=== PATIENT | male | born 1990 | race Caucasian/White ===

== ENCOUNTER 2022-11-18 12:48 | Emergency (ER) | payer SELFPAY ==
--- NOTE | ~2022-11-18 | XR_ITS ---
EXAMINATION: XR knee RT 4V, XR knee LT 4V CLINICAL INFORMATION: Reason for Exam Knee pain. COMPARISON: None available at the time of this dictation. TECHNIQUE: Frontal lateral and obliques 4 view each side. FINDINGS: BONES: No fracture or dislocation is present. JOINTS: Joint spaces are preserved. Patella properly positioned. No joint effusions. Articular surfaces are smooth. SOFT TISSUE: Normal XR/XR knee RT 4V IMPRESSION: No significant osseous changes to explain patient's pain symptoms.
--- NOTE | ~2022-11-18 | XR_ITS ---
EXAMINATION: XR knee RT 4V, XR knee LT 4V CLINICAL INFORMATION: Reason for Exam Knee pain. COMPARISON: None available at the time of this dictation. TECHNIQUE: Frontal lateral and obliques 4 view each side. FINDINGS: BONES: No fracture or dislocation is present. JOINTS: Joint spaces are preserved. Patella properly positioned. No joint effusions. Articular surfaces are smooth. SOFT TISSUE: Normal XR/XR knee LT 4V IMPRESSION: No significant osseous changes to explain patient's pain symptoms.
[2022-11-18 13:04] VITALS: BP 108/70; PULSE 92; RESP 18; TEMP 36.7; O2SAT 94; BMI 34.9
--- NOTE | 2022-11-18 13:07 | ED_ITS ---
HPI - General Adult General Chief complaint: Extremity Injury, Lower Stated complaint: Bilateral knee pain, lump behind knee Time Seen by Provider: 11/18/22 14:17 Source: patient Mode of arrival: ambulatory Limitations: no limitations History of Present Illness HPI narrative: Patient is a 32-year-old male presenting emergency department with complaint of bilateral knee pain for the past several years, left worse than right. Patient reports pain increases after sitting with legs bent for extended period of time and then straightening his legs. He denies using any [id number] medications for his symptoms. He has applied ice and is currently wearing a compression sleeve to his left knee. He reports an injury to his left knee in 7th grade which he was never evaluated for. He denies any recent falls or other trauma. He denies any numbness or tingling to his legs. He denies any difficulty with ambulation. MD complaint: Bilateral knee pain Onset (ago): year(s) Location: lower extremity Radiation: non-radiation Severity: moderate Severity scale (1-10): 6 Quality: aching Pain Consistency: intermittent Relieving factors: rest Exacerbating factors: movement Associated symptoms: denies other symptoms Treatments prior to arrival: cold therapy Related Data Allergies Allergy/AdvReac Type Severity Reaction Status Date / Time No Known Allergies Allergy Verified 11/18/22 13:04 Review of Systems Review of Systems: As per HPI. Yes all other systems are reviewed and are negative Constitutional: Constitutional: Reports as per HPI [facility] Social History Social History Advance Directives: No Advance Directives Information Provided: Yes Physical Exam ED Vital Signs: Vital Signs - 24 hr 11/18/22 13:04 11/18/22 15:27 Temperature 98.1 F 97.8 F Pulse Rate 92 71 Respiratory Rate 18 19 Blood Pressure 108/70 113/66 Pulse Oximetry 94 98 Oxygen Delivery Method Room Air Room Air BMI result Body Mass Index 34.9 Vital signs have been reviewed and appear to be correct. Blood pressure normal. Heart rate normal. Respiratory rate normal. Temperature normal. Oxygen saturation normal. Const General: cooperative, healthy appearing and no acute distress Orientation/consciousness: oriented to person, oriented to place, oriented to time and patient oriented x3 Limitations: no limitations HENMT Head: Yes normocephalic and Yes atraumatic Ears: external ears normal General nose exam: Normal external nose present Face and sinus: Yes face symmetric Mouth: oropharynx normal and moist mucous membranes Throat: Yes uvula midline Eyes Pupils: Equal, round and reactive pupils present Neck Neck: Yes normal visual inspection and Yes supple Resp Effort & Inspection: normal respiratory effort and able to speak in complete sentences Auscultation: clear to auscultation bilaterally Cardio Rate: regular rate Rhythm: regular rhythm Heart sounds: S1 normal heart sound present and S2 normal heart sound present GI Palpation (GI): Soft to palpation and nontender Auscultation: normoactive bowel sounds General: Yes no CVA tenderness Back/Spine/Pelvis Back: no CVA tenderness Skin General skin exam: elasticity normal and turgor normal Neuro General: oriented to person, oriented to place, oriented to time, patient oriented x3, moves all extremities, no focal motor deficits, CN's II-XI intact bilaterally and deep tendon reflexes 2+ bilaterally Cranial nerves: Yes Equal, round and reactive pupils present Cognition (Neuro): normal cognition Extrem General: Yes full ROM, Yes no pedal edema and Yes no calf tenderness Right lower extremity: knee Details: normal to inspection, normal ROM and knee ligament exam normal; no tenderness, no swelling, no ecchymosis, no crepitus and no unusual warmth Left lower extremity: knee Details: normal to inspection, tenderness Location: of the patella Details: medially and laterally, normal ROM and knee ligament exam normal; no swelling, no ecchymosis, no crepitus, no deformity and no unusual warmth Psych Mental Status: mental status grossly normal Affect: normal affect Thought process: Normal thought process present Course Course Course Narrative: RME: 32 yold male presents to the ED for bilateral knee pain that is worse on movement. patient denies any trauma, but admits to heavy pushing of objects at work and twisting knees in the past. knee xrays ordered Medical Decision Making Medical Decision Making MDM Narrative: Patient is a 32-year-old male presenting emergency department with complaint of bilateral knee pain for the past several years, left worse than right. On exam patient is awake, A+Ox3, VS WNL, afebrile, normal neurological exam without focal deficits, mild tenderness to left patella, otherwise unremarkable exam, ligament exams normal bilaterally, patient neurovascularly intact distally. Given reported symptoms and physical exam findings, initial differential includes tendinopathy, bursitis, idiopathic pain, osteoarthritis, malignancy/mass. X-ray notable for no significant osseous changes to explain pain bilaterally, no evidence of osteoarthritis. My interpretation is in agreement with the radiologist's interpretation. Discussed with patient that he will likely need MRIs to further evaluate his chronic knee pain, will refer to orthopedics. Advised patient to begin using Tylenol daily per package instructions, continue to ice his knees, can continue to use compression sleeves for comfort. Return precautions discussed at bedside. All results discussed and all questions answered. Patient verbalized understanding of and agreement with plan. Differential Diagnosis Differential Diagnoses: The differential diagnosis associated with the presentation includes As per MDM. Independent Interpretation I performed an independent interpretation of an: Plain X-Ray Interpretation: No significant osseous changes to explain pain bilaterally Radiology Impression Discussion of test interpretation with radiology: I have reviewed the radiologist's reading. Radiologist Impression: XR/XR knee LT 4V IMPRESSION: No significant osseous changes to explain patient's pain symptoms.? ? XR/XR knee RT 4V IMPRESSION: No significant osseous changes to explain patient's pain symptoms.? ? External Record Review External record reviewed: Inpatient record, Office record and Outpatient record Discharge Plan Discharge Clinical Impression: Chronic pain of both knees Patient Disposition: Home, Self-Care Instructions: Knee Pain (ED) Additional Instructions: You were evaluated in the emergency department for pain to both of your knees. Your x-rays did not reveal any conditions requiring emergent treatment at this time. The ligament exams of your knees were normal. You are being referred to Orthopedics for additional evaluation. You should begin taking 650 mg of Tylenol every 6 hours as well as applying ice for 10-15 minutes at a time several times daily. You can also use an [id number] sleeve brace for additional support. You should return to the emergency department for worsening pain, new weakness, numbness, tingling to your legs, difficulty walking, or any other concerning symptoms. Referrals: [facility] [Provider Group] Interventions: ED Discharge Assessment Last Done: 11/18/22 15:50 Discharge Date/Time: 11/18/22 15:51
[2022-11-18 15:27] VITALS: BP 113/66; PULSE 71; RESP 19; TEMP 36.6; O2SAT 98
== END 2022-11-18 15:51 | disposition home or self-care (01) ==
PROVIDERS: Emergency Provider Emergency Medicine
DX: M25.561 Pain in right knee (principal); M25.562 Pain in left knee
CPT/HCPCS: 73564; 99282; 99283

== ENCOUNTER 2023-03-08 12:52 | Emergency (ER) | payer SELFPAY ==
[2023-03-08 13:15] VITALS: BP 118/85; PULSE 92; RESP 18; TEMP 36.9; O2SAT 96; BMI 36.6
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
== END 2023-03-08 13:41 | disposition home or self-care (01) ==
LOC: HO.ED 13:38
PROVIDERS: Emergency Provider Emergency Medicine
DX: S13.4XXA Sprain of ligaments of cervical spine, initial encounter (principal); S13.9XXA Sprain of joints and ligaments of unspecified parts of neck, initial encounter; M79.652 Pain in left thigh; V43.52XA Car driver injured in collision with other type car in traffic accident, initial encounter; Y93.9 Activity, unspecified; Y92.410 Unspecified street and highway as the place of occurrence of the external cause; Y99.9 Unspecified external cause status
CPT/HCPCS: 99282; 99283

== ENCOUNTER → 2025-03-30 12:29 | Outpatient (BNV) | payer OTHER, SELFPAY | PROVIDERS: Admitting Provider Clinical Nurse Specialist Psychiatric/Mental Health, Adult; Emergency Provider Emergency Medicine; Visit Provider Internal Medicine | DX: R94.31 Abnormal electrocardiogram [ECG] [EKG] (principal); Z13.6 Encounter for screening for cardiovascular disorders | CPT/HCPCS: 93010 ==

== ENCOUNTER → 2025-03-30 14:20 | Outpatient (BNV) | payer OTHER, SELFPAY | PROVIDERS: Admitting Provider Clinical Nurse Specialist Psychiatric/Mental Health, Adult; Emergency Provider Emergency Medicine; Visit Provider Psychiatry & Neurology Psychiatry | DX: F31.32 Bipolar disorder, current episode depressed, moderate (principal); R45.851 Suicidal ideations; F12.90 Cannabis use, unspecified, uncomplicated; F43.10 Post-traumatic stress disorder, unspecified; F90.9 Attention-deficit hyperactivity disorder, unspecified type | CPT/HCPCS: 90792; 99232 ==

== ENCOUNTER → 2025-03-30 14:20 | Outpatient (BNV) | payer OTHER, SELFPAY | PROVIDERS: Admitting Provider Clinical Nurse Specialist Psychiatric/Mental Health, Adult; Emergency Provider Emergency Medicine; Visit Provider Nurse Practitioner Family | DX: R45.851 Suicidal ideations (principal) | CPT/HCPCS: 99221; 99499 ==